=== PATIENT | female | born 1990 | race Two or more races ===

== ENCOUNTER 2024-11-17 09:36 | Inpatient (IN) | payer OTHER ==
[~2024-11-17] VITALS: Ht 167.6 cm; Wt 2.7 kg
[2024-11-17 08:25] VITALS: BP 109/56
[2024-11-17] MEDS ORDERED: PRENATAL TABLE1 EAC1 PO (09:56)
[2024-11-17] MEDS ORDERED: RINGERS SOLUTION,LACTATED 1,000 ML IV SCH ×2 (10:15→16:45)
[2024-11-17 10:47] LABS: BASO % 0.2 % (0.1-1.2); EOS # 0.06 (0.04-0.54); EOS % 0.7 % (0.7-7.0); HEMATOCRIT 35.4 % (34.1-44.9); HEMOGLOBIN 11.7 g/dL (11.2-15.7); LYMPH % 21.2 % (19.3-53.1); MONO # 0.97 (0.24-0.82); MONO % 10.8 % (4.7-12.5); NEUT % 65.9 % (34.0-71.1); PLATELET COUNT 250 K/uL (163-369); RED CELL DISTRIBUTION WIDTH 13.2 % (11.6-14.4); URINE APPEARANCE Clear; URINE BILIRRUBIN Negative (NEGATIVE); URINE BLOOD Negative; URINE COLOR Yellow; URINE GLUCOSE Negative (NEGATIVE); URINE KETONE Negative (NEGATIVE); URINE LEUKOCYTE Trace; URINE NITRATE Negative; URINE PROTEIN Negative (NEGATIVE)
[2024-11-17 10:48] LABS: URINE BACTERIA 227.5 uL (0.0-1933); URINE EPITHELIAL CELLS 28.9 uL (0.0-38.8); URINE WBC 6.1 uL (0.0-23.2)
[2024-11-17 11:14] LABS: URINE RBC 0.7 uL (0.0-20.8)
[2024-11-17 11:39] VITALS: BP 106/51
[2024-11-17 14:11] VITALS: BP 109/56
[2024-11-17] MEDS ORDERED: TERBUTALINE SULFATE 1 MG/ML AMPUL ONE (15:20)
[2024-11-17 15:24] VITALS: BP 109/60
[2024-11-17] MEDS ORDERED: TERBUTALINE SULFATE 1 MG/ML AMPUL IV ONE (15:45)
[2024-11-17] MEDS ORDERED: ERYTHROMYCIN BASE OPHT 1GM EACH TUBE OP ONE (15:54)
[2024-11-17] MEDS ORDERED: OXYTOCIN 10 UNITS/ML VIAL ONE ×2 (15:54→19:59)
[2024-11-17] MEDS ORDERED: KETOROLAC TROMETHAMINE 60 MG VIAL IM STA (16:40)
[2024-11-17] MEDS ORDERED: OXYTOCIN 1,000 ML IV SCH (16:45)
[2024-11-17] MEDS ORDERED: MEPERIDINE HCL/PF 50 MG/ML VIAL IM PRN (16:45)
[2024-11-17] MEDS ORDERED: PROMETHAZINE HCL 25 MG/ML AMPUL IM PRN (16:45)
[2024-11-17] MEDS ORDERED: CHLORHEXIDINE GLUCONATE 120 ML BOTTLE TOP SCH (16:45)
[2024-11-17] MEDS ORDERED: MORPHINE SULFATE 4 MG/ML VIAL IV ONE (18:25)
[2024-11-17] MEDS ORDERED: KETOROLAC TROMETHAMINE 60 MG VIAL IM ONE (19:40)
[2024-11-17 20:27] LABS: BASO % 0.2 % (0.1-1.2); EOS # 0.03 (0.04-0.54); EOS % 0.2 % (0.7-7.0); HEMATOCRIT 33.1 % (34.1-44.9); HEMOGLOBIN 11.1 g/dL (11.2-15.7); LYMPH % 5.4 % (19.3-53.1); MEAN CORPUSCULAR HEMOGLOBIN 26.6 pg (25.6-32.2); MONO # 1.16 (0.24-0.82); MONO % 6.2 % (4.7-12.5); NEUT % 87.2 % (34.0-71.1); PLATELET COUNT 218 K/uL (163-369); RED BLOOD COUNT 4.18 M/uL (3.93-5.22); RED CELL DISTRIBUTION WIDTH 13.2 % (11.6-14.4)
[2024-11-17 21:14] VITALS: BP 115/70
[2024-11-17] MEDS ORDERED: MORPHINE SULFATE 4 MG/ML VIAL IV PRN (21:15)
[2024-11-18 00:48] VITALS: BP 111/67
[2024-11-18 08:00] VITALS: BP 100/64
[2024-11-18] MEDS ORDERED: OxyCODONE HCL 5 MG TABLET (ROXICODONE) PO PRN (09:00)
[2024-11-18] MEDS ORDERED: ACETAMINOPHEN 325 MG TABLET PO PRN (09:00)
[2024-11-18] MEDS ORDERED: ACETAMINOPHEN WITH CODEINE 1 UDTAB TABLET PO PRN (09:00)
[2024-11-18 17:00] VITALS: BP 126/77
[2024-11-18 20:54] VITALS: BP 106/67
[2024-11-18 23:56] VITALS: BP 99/61
[2024-11-19 08:47] VITALS: BP 113/77
[2024-11-19] MEDS ORDERED: IBUprofen 800 MG TABLET PO PRN (09:30)
[2024-11-19 18:04] VITALS: BP 115/75
[2024-11-20] VITALS: BP 106/71
[2024-11-20 08:07] VITALS: BP 94/62
[2024-11-20] MEDS ORDERED: IBUPROFEN800 MG PO (09:45)
== END 2024-11-20 14:17 | disposition home or self-care (01) | DRG 788 ==
LOC: OBS/DEL 09:36 → LDR 13:57 → O/R 13:57 → OB/GYN 18:22
PROVIDERS: ADMIT Obstetrics & Gynecology; ATTEND Obstetrics & Gynecology
PROC: 4A1HXCZ Monitoring of Products of Conception, Cardiac Rate, External Approach (ICD-10-PCS; 2024-11-17)
PROC: 10D00Z1 Extraction of Products of Conception, Low, Open Approach (ICD-10-PCS; principal; 2024-11-17 17:45)
DX: O32.1XX0 Maternal care for breech presentation, not applicable or unspecified (principal); Z3A.38 38 weeks gestation of pregnancy; Z37.0 Single live birth